=== PATIENT | female | born 1965 ===

== ENCOUNTER 2024-03-23 10:30 | Inpatient (IN) | payer MEDICAID, OTHER ==
[~2024-03-23] VITALS: Ht 157.5 cm; Wt 72.7 kg
[2024-03-23 12:15] LABS: EOSINOPHILS % (AUTO) 0.6 % (1.0-6.0); HEMATOCRIT 39.8 % (36-46); HEMOGLOBIN 13.3 g/dL (12.0-16.0); LYMPHOCYTES # (AUTO) 2.1 K/uL (1.0-4.8); LYMPHOCYTES % (AUTO) 17.7 % (22.0-44.0); MEAN CORPUSCULAR HEMOGLOBIN 31.6 pg (26.0-34.0); MEAN CORPUSCULAR HGB CONC 33.4 G/dL (31.0-37.0); MEAN CORPUSCULAR VOLUME 95 fL (80-100); MONOCYTES # (AUTO) 0.6 K/uL (0.1-1.0); NEUTROPHILS # (AUTO) 8.9 K/uL (1.8-7.7); NEUTROPHILS % (AUTO) 75.7 % (40.0-70.0); PLATELET COUNT (AUTO) 368 K/uL (150-450); RED CELL DISTRIBUTION WIDTH 18.1 % (11.5-14.5); WHITE BLOOD COUNT (AUTO) 11.7 K/uL (4.5-11.0)
[2024-03-23 12:26] LABS: GLUCOMETER DEV NAME(LOC) ER.7; GLUCOSE,POINT OF CARE 83 MG/DL (70-110)
[2024-03-23 12:46] LABS: ALANINE AMINOTRANSFERASE 30 U/L (12-78); ALBUMIN 3.4 g/dL (3.4-5.0); ALKALINE PHOSPHATASE 118 U/L (46-116); ANION GAP 15 mmol/L (8-16); ASPARTATE AMINOTRANSFERASE 35 U/L (15-37); BILIRUBIN,TOTAL 0.2 mg/dL (0.1-1.0); CALCIUM, TOTAL 8.4 mg/dL (8.8-10.5); CARBON DIOXIDE 23 mmol/L (22-29); CHLORIDE 100 mmol/L (98-107); CREATININE 0.69 mg/dL (0.60-1.30); GLOMERULAR FILTR. RATE CALC > 60 mL/min (>60); GLUCOSE,RANDOM 83 mg/dL (70-110); SODIUM SERUM 138 mmol/L (136-145); TOTAL PROTEIN, SERUM 8.1 g/dL (6.4-8.2); UREA NITROGEN, BLOOD 10 mg/dL (7-18)
[2024-03-23] MEDS: DIAZEPAM 5 MG/ML 2 ML SYRINGE IVP ONE (12:47)
[2024-03-23 13:12] LABS: ALCOHOL, BLOOD (SERUM) 344 mg/dL (0-10)
[2024-03-23] MEDS: MAGNESIUM SULFATE 2 GM, MVI, ADULT NO.1 WITH VIT K 10 ML, THIAMINE 100 MG, FOLIC ACID 1... IV ONE (13:47)
[2024-03-23] MEDS: ONDANSETRON HCL 4 MG/2 ML VIAL IVP ONE (13:47)
[2024-03-23] MEDS: ChlordiazePOXIDE HCL 25 MG CAPSULE PO ONE (13:47)
[2024-03-23 14:25] LABS: PH,URINE DRUG SCREEN 5.5 (5.0-8.0)
[2024-03-23 14:37] LABS: AMPHET/METH SCREEN,URINE POSITIVE (NEGATIVE); BARBITURATE SCREEN, URINE NEGATIVE (NEGATIVE); BENZODIAZEPINES SCREEN,URINE NEGATIVE (NEGATIVE); CANNABINOID SCREEN,URINE NEGATIVE (NEGATIVE); COCAINE SCREEN,URINE NEGATIVE (NEGATIVE); METHADONE SCREEN, URINE NEGATIVE (NEGATIVE); OPIATE SCREEN,URINE NEGATIVE (NEGATIVE); PHENCYCLIDINE SCREEN,URINE NEGATIVE (NEGATIVE)
[2024-03-23 14:41] LABS: ALCOHOL, URINE DRUG SCREEN POSITIVE (NEGATIVE)
[2024-03-23] MEDS ORDERED: ZOLPIDEM TARTRATE 10 MG TABLET PO PRN (15:00)
[2024-03-23] MEDS: LORazepam 2 MG TABLET PO PRN (15:04)
[2024-03-23 19:22] LABS: COVID AG,FIA SOURCE NASAL SWAB
[2024-03-23 19:41] LABS: SARS-COV2 (COVID) ANTIGEN,FIA Negative (Negative)
[2024-03-23 23:30] VITALS: BP 137/82; PULSE 100; RESP 18; TEMP 97.3; O2SAT 96
[2024-03-24] VITALS (10 sets, daily range): BP systolic 126–162; BP diastolic 82–104; PULSE 79–110; RESP 18; TEMP 97–98.2; O2SAT 17–100
[2024-03-24] MEDS: HALOPERIDOL 5 MG TABLET PO PRN (10:50)
[2024-03-24] MEDS ORDERED: GuaiFENesin/D-METHORPHAN [SUGAR-FREE] 200-20MG/10 ML SYRUP UDCUP PO PRN (11:15)
[2024-03-24] MEDS ORDERED: HydrOXYzine PAMOATE 50 MG CAPSULE PO PRN (11:15)
[2024-03-24] MEDS ORDERED: LOPERAMIDE HCL 2 MG CAPSULE PO PRN (11:15)
[2024-03-24] MEDS: CYANOCOBALAMIN 1,000 MCG/ML VIAL IM ONE (14:09)
[2024-03-24] MEDS: THIAMINE 100 MG TABLET PO SCH (18:06)
[2024-03-24] MEDS: OMEPRAZOLE 20 MG CAPSULE PO SCH (21:38)
[2024-03-25 03:00] VITALS: BP 161/104; PULSE 102; RESP 18; TEMP 97.2; O2SAT 98
[2024-03-25 07:02] VITALS: BP 138/99; PULSE 107; RESP 18; TEMP 97.6; O2SAT 98
[2024-03-25] MEDS: FOLIC ACID 1 MG TABLET PO SCH (08:22)
[2024-03-25] MEDS: MULTIVITAMINS WITH MINERALS, THERAPEUTIC TABLET PO SCH (08:22)
[2024-03-25 08:35] LABS: APPEARANCE,URINE HAZY (CLEAR); BILIRUBIN,URINE NEGATIVE (NEGATIVE); COLOR,URINE LIGHT YELLOW (YELLOW); GLUCOSE, URINE (UA) NEGATIVE (NEGATIVE); KETONES,URINE NEGATIVE (NEGATIVE); LEUKOCYTE ESTERASE ,URINE LARGE (NEGATIVE); NITRATE,URINE NEGATIVE (NEGATIVE); OCCULT BLOOD,URINE NEGATIVE (NEGATIVE); PH,URINE 7.5 (5.0-8.0); PROTEIN,URINE TRACE mg/dL (NEGATIVE); SPECIFIC GRAVITIY, URINE 1.012 (1.003-1.030); UROBILINOGEN,URINE <=1.0 mg/dL (<=1.0)
[2024-03-25 08:47] LABS: BACTERIA,URINE Many /HPF (None Seen); RBC,URINE None Seen /HPF (0-2); WBC,URINE 51-100 /HPF (0-5)
[2024-03-25 08:49] VITALS: BP 140/90; PULSE 107; RESP 19; TEMP 97.3; O2SAT 97
[2024-03-25 09:30] VITALS: PULSE 100
[2024-03-25] MEDS: CEPHALEXIN MONOHYDRATE 500 MG CAPSULE PO SCH (13:52)
[2024-03-25 20:42] VITALS: BP 141/98; PULSE 97; RESP 16; TEMP 98; O2SAT 99
[2024-03-25] MEDS ORDERED: ACETAMINOPHEN 325 MG TABLET PO PRN (23:00)
[2024-03-26 08:21] VITALS: BP 115/71; PULSE 102; RESP 18; TEMP 97.5; O2SAT 98
[2024-03-26] MEDS ORDERED: CEPH-558 PO (10:29)
[2024-03-26] MEDS ORDERED: OMEP20 PO (10:29)
== END 2024-03-26 11:57 | disposition home or self-care (01) | DRG 753 ==
LOC: EMS 10:32 → B2S 20:36
PROVIDERS: ADMIT Psychiatry & Neurology Child & Adolescent Psychiatry; ATTEND Psychiatry & Neurology Child & Adolescent Psychiatry
PROC: GZ52ZZZ Individual Psychotherapy, Cognitive (ICD-10-PCS; principal; 2024-03-25)
DX: F31.4 Bipolar disorder, current episode depressed, severe, without psychotic features (principal); E83.51 Hypocalcemia; R45.851 Suicidal ideations; R56.9 Unspecified convulsions; F10.10 Alcohol abuse, uncomplicated; F15.90 Other stimulant use, unspecified, uncomplicated; Z20.822 Contact with and (suspected) exposure to COVID-19; N39.0 Urinary tract infection, site not specified; Z88.2 Allergy status to sulfonamides
CPT/HCPCS: 80053; 80307; 81001; 82962; 85025; 87086; 87186; 99285; G0480; J2405; J3411; J3420; J3475; J3490; J7030